=== PATIENT | male | born 1995 | race Hispanic/Latino ===

== ENCOUNTER 2021-06-13 09:24 | Emergency (ER) | payer SELFPAY ==
[~2021-06-13] VITALS: Ht 162.6 cm; Wt 104.3 kg
[2021-06-13] MEDS ORDERED: KETOROLAC TROMETHAMINE 30 MG/ML VIAL IV STA (10:22)
[2021-06-13 11:29] VITALS: BP 120/77
== END 2021-06-13 11:31 | disposition home or self-care (01) ==
LOC: FSED 09:30
DX: R07.89 Other chest pain (principal); F90.9 Attention-deficit hyperactivity disorder, unspecified type; F17.210 Nicotine dependence, cigarettes, uncomplicated
CPT/HCPCS: 71046; 80053; 80307; 82553; 83880; 84484; 85025; 93005; 99283